=== PATIENT | male | born 1995 | race Caucasian/White ===

== ENCOUNTER 2018-08-23 17:12 | Emergency (ER) | payer BC ==
[2018-08-23] MEDS ORDERED: NS 1,000 ML IV ONE ×2 (17:47→19:41)
[2018-08-23] MEDS ORDERED: ONDANSETRON 4 MG/2 ML VIAL IVP PRN (17:47)
--- NOTE | 2018-08-23 17:53 | EDPHY ---
General Time Seen by Provider: 08/23/18 17:40 Narrative: CLINICAL IMPRESSION: Myalgias, nausea, vomiting, fever ASSESSMENT/PLAN: Patient is a 23-year-old male with no significant medical history presents to the emergency department with fever, myalgias, nausea and vomiting which started suddenly this morning. Patient daughter with exact symptoms this weekend. Patient is afebrile on arrival, mildly tachycardic. He is tired appearing however not toxic-appearing. His abdomen is soft, I am unable to elicit any tenderness to palpation. CBC with no evidence of leukocytosis. BMP with no significant metabolic abnormality or evidence of acute kidney injury. Hepatic panel and lipase grossly unremarkable without evidence of acute pancreatitis, acute hepatitis or acute hepatobiliary obstruction. Influenza negative. The patient was given IV fluids, antiemetic and Toradol with improvement of his symptoms. As there are other individuals with similar symptoms in the household I suspect this is viral in nature. He had no abdominal pain to suggest etiologies to include pancreatitis, cholecystitis, kidney stone, obstruction, perforation or other acute life-threatening intra- abdominal processes. The patient does not have a primary care provider, I provided a referral for him and he understands the importance of establishing care this week. On repeat examination prior to discharge the patient reports he is feeling much better, his heart rate normalized into the 80s on my examination. His abdomen remained soft and nontender, no peritoneal signs or evidence of a surgical abdomen. Conservative return precautions were discussed- he will return for uncontrolled fever, persistent nausea and vomiting, concerns of dehydration or for any other concerning symptom. DIFFERENTIAL DX: Adult fever including but not limited to viral syndromes including influenza, urinary tract infection, pneumonia and sepsis. ED COURSE: 1729: Case discussed with Dr. Steel 1934: On repeat examination the patient reports he is feeling much better, he is still mildly tachycardic at 100. Will p.o. Challenge. 2029: On repeat exam the patient is well-appearing, his heart rate on my examination was 87. His abdomen is soft and nontender to palpation. He was able to tolerate p.o.. CHIEF COMPLAINT: Myalgias, nausea, vomiting, fever HPI: Patient is a 23-year-old male with no significant medical history who presents to the Emergency Department with sudden-onset myalgias, fever, nausea and vomiting which started this morning. Patient reports his daughter was sick over the weekend with the very same symptoms, he had sudden onset this morning. Been unable to keep anything down, emesis x2. Patient reports feeling the chills and generally unwell 1st thing this morning, tried E when he started vomiting. Denies any recent travel or recent antibiotic use. He has been experiencing some congestion however denies any runny nose, cough or chest pain. He states that his stomach is upset, denies any focal abdominal pain. He denies any urinary symptoms to include dysuria, hematuria or frequency, he has had no testicular pain or swelling. He has had no bowel movement today however denies any issues with constipation or recent diarrhea. PMH: Denies Family History: Noncontributory Social History: Denies illicit drug use or smoking REVIEW OF SYSTEMS: All other systems negative Constitutional: Fever, chills, decreased appetite. Eyes: No discharge, vision change ENT: No sore throat, congestion, ear pain. Cardiovascular: No chest pain, no palpitations. Respiratory: No cough, no shortness of breath. Gastrointestinal: Nausea, vomiting, abdominal pain. No diarrhea Genitourinary: No hematuria, dysuria, flank pain, pelvic pain. Musculoskeletal: Myalgias No back pain, joint swelling, joint pain. Skin: No rashes, color change. Neurological: No dizziness, weakness. PHYSICAL EXAM: General Appearance: Well-developed, tired appearing however not toxic- appearing. HENT: Normocephalic, atraumatic. Bilateral external ears are normal. Bilateral tympanic membranes are normal with pearly leija reflex. Nares are clear, mucosa is pink. Oropharynx is clear, mucosa is mildly dry, uvula is midline. There is no tonsillar enlargement or exudate. The dentition is normal. Eyes: PERRLA, no acute vision change, nystagmus, swelling, discharge, pain or photosensitivity. Conjunctiva pink, no pallor or injection. Neck: Supple, nontender, no lymphadenopathy, no midline pain, FROM, no meningismus. Respiratory: There are no retractions, lungs are clear to auscultation. Cardiac: Tachycardic, no murmurs or gallops. Gastrointestinal: Abdomen is soft, nontender, bowel sounds normal, no masses/ hernia, no rigidity, guarding or focal peritoneal findings. Neurological: Alert and oriented x 3, CN 2-12 grossly intact, normal gait no ataxia, DTR's intact, normal sensation and strength Skin: Warm, dry, no rashes, no nodules on palpation. Musculoskeletal: Extremities are symmetrical, full range of motion, no tenderness, deformity, swelling, or erythema. Psychiatric: Patient is oriented X 3, there is no agitation. MEDICAL DECISION MAKING: Patient was seen independently. Secondary supervising physician at time of evaluation was Dr. Steel, she did not evaluate this patient. Diagnosis: Fever, nausea, vomiting, myalgias. New, requires workup Summary: See Assessment and Plan for summary of ED visit Clinical lab tests: ordered / reviewed. Independent visualization of images, tracing, or specimens: No. Decision to obtain medical records or history from someone other than the patient: No Review / Summarize previous medical records: Yes Discussed patient with another provider: Yes, Dr. Steel Patient Progress: Stable, discharged. - History Smoking Status: Never smoked - Objective Vital Signs: Initial Vital Signs Temperature (C) 37.7 C 08/23/18 17:18 Heart Rate 118 H 08/23/18 17:18 Respiratory Rate 18 08/23/18 17:18 Blood Pressure 133/96 H 08/23/18 17:18 O2 Sat (%) 93 08/23/18 17:18 O2 Delivery Mode Room Air Allergies/Adverse Reactions: No Known Allergies Allergy (Unverified 08/23/18 17:18) Home Medications: Medication Instructions Recorded Ondansetron Odt [Zofran Odt] 4 mg PO Q8 PRN #5 tab 08/23/18 Laboratory Results: Laboratory Results 08/23/18 17:50 08/23/18 17:50 08/23/18 08/23/18 08/23/18 17:50 17:50 17:50 WBC 8.10 10^3/uL 10^3/uL (3.80-9.50) RBC 6.04 10^6/uL 10^6/uL (4.40-6.38) Hgb 18.3 g/dL H g/dL (13.7-17.5) Hct 49.6 % % (40.0-51.0) MCV 82.1 fL fL (81.5-99.8) MCH 30.3 pg pg (27.9-34.1) MCHC 36.9 g/dL H g/dL (32.4-36.7) RDW 12.1 % % (11.5-15.2) Plt Count 184 10^3/uL 10^3/uL (150-400) MPV 9.9 fL fL (8.7-11.7) Neut % (Auto) 81.8 % H % (39.3-74.2) Lymph % (Auto) 7.7 % L % (15.0-45.0) Brewster % (Auto) 9.6 % % (4.5-13.0) Eos % (Auto) 0.1 % L % (0.6-7.6) Baso % (Auto) 0.4 % % (0.3-1.7) Nucleat RBC Rel Count 0.0 % % (0.0-0.2) Absolute Neuts (auto) 6.63 10^3/uL H 10^3/uL (1.70-6.50) Absolute Lymphs (auto) 0.62 10^3/uL L 10^3/uL (1.00-3.00) Absolute Monos (auto) 0.78 10^3/uL 10^3/uL (0.30-0.80) Absolute Eos (auto) 0.01 10^3/uL L 10^3/uL (0.03-0.40) Absolute Basos (auto) 0.03 10^3/uL 10^3/uL (0.02-0.10) Absolute Nucleated RBC 0.00 10^3/uL 10^3/uL (0-0.01) Immature Gran % 0.4 % % (0.0-1.1) Immature Gran # 0.03 10^3/uL 10^3/uL (0.00-0.10) Sodium 134 mEq/L L mEq/L (135-145) Potassium 3.7 mEq/L mEq/L (3.5-5.2) Chloride 102 mEq/L mEq/L (97-110) Carbon Dioxide 22 mEq/l mEq/l (22-31) Anion Gap 10 mEq/L mEq/L (6-14) BUN 10 mg/dL mg/dL (7-23) Creatinine 0.9 mg/dL mg/dL (0.7-1.3) Estimated GFR > 60 Glucose 113 mg/dL H mg/dL (70-100) Calcium 8.9 mg/dL mg/dL (8.5-10.4) Total Bilirubin 1.6 mg/dL H mg/dL (0.1-1.4) Conjugated Bilirubin 0.3 mg/dL mg/dL (0.0-0.5) Unconjugated Bilirubin 1.3 mg/dL H mg/dL (0.0-1.1) AST 35 IU/L IU/L (17-59) ALT 41 IU/L IU/L (21-72) Alkaline Phosphatase 86 IU/L IU/L (38-126) Total Protein 7.4 g/dL g/dL (6.3-8.2) Albumin 4.4 g/dL g/dL (3.5-5.0) Lipase 66 IU/L IU/L (23-300) Nasal Influenza A PCR NEGATIVE FOR FLU A (NEGATIVE) Nasal Influenza B PCR NEGATIVE FOR FLU B (NEGATIVE) Medications Given: Discontinued Medications Sodium Chloride (Ns) 1,000 mls @ 0 mls/hr IV ONCE ONE PRN Reason: Wide Open Stop: 08/23/18 17:48 Last Admin: 08/23/18 18:00 Dose: 1,000 mls Sodium Chloride (Ns) 1,000 mls @ 0 mls/hr IV ONCE ONE PRN Reason: Wide Open Stop: 08/23/18 19:42 Last Admin: 08/23/18 19:47 Dose: 1,000 mls Ketorolac Tromethamine (Toradol) 30 mg IVP EDNOW ONE Stop: 08/23/18 19:02 Last Admin: 08/23/18 19:11 Dose: 30 mg Ondansetron HCl (Zofran) 4 mg IVP Q4 PRN PRN Reason: Nausea/Vomiting, Can't Take PO Stop: 02/19/19 17:46 Last Admin: 08/23/18 18:01 Dose: 4 mg Departure - Departure Disposition: Home, Routine, Self-Care Clinical Impression: Nausea and vomiting Qualifiers: Vomiting type: unspecified Vomiting Intractability: non-intractable Qualified Code(s): R11.2 - Nausea with vomiting, unspecified Condition: Good Instructions: Ondansetron (By mouth), Acute Nausea and Vomiting (ED) Additional Instructions: DISCHARGE INSTRUCTIONS FROM YOUR DOCTOR Thank you for visiting our emergency department today. Please keep in mind that discharge from the emergency department does not mean that there is nothing wrong - it simply means that we have not identified an emergency condition that requires further evaluation or treatment in the hospital. You should always plan to follow up with primary care for re-evaluation of your condition in the next 2-3 days. Rest, push non-diuretic, non-caffeinated fluids, clear liquid diet, then a BRAT diet (bananas, rice, applesauce, toast), then slowly advance diet to normal. Attempt small frequent meals. Zofran as prescribed as needed for any recurrent nausea and/or vomiting. Schedule a follow-up appointment with your primary care physician in the next 1- 2 days for re-evaluation. Bring a copy of your test results with you to that appointment. Return for increased or unmanageable pain, new site or character of pain, flank pain, groin pain, pelvic pain, development of fever, chills, recurrent vomiting , vomiting blood or coffee grounds, diarrhea, constipation, bloody stools, black tarry stools, burning or pain with urination, bloody urine, inability to urinate, decreased urine output or other signs of dehydration, dizziness, weakness, fainting, difficulty breathing or swallowing, chest pain, or for any other new, worsening or worrisome symptoms. People present with illnesses and injuries in different ways, and it is always possible that we have missed something. You may always return for re-evaluation if symptoms worsen or if they are not improving or if you develop new/different symptoms. Again, thank you for choosing our emergency department. We hope that you feel better. Referrals: Rahat Munguia DO [Doctor of Osteopathy] - 2-3 days, call for appt. (Please establish care with a primary care provider, call to schedule an appointment for repeat examination this week.) Prescriptions: Ondansetron Odt [Zofran Odt] 4 mg PO Q8 PRN #5 tab PRN Reason: Nausea/Vomiting, Can'T Take Po
[2018-08-23 18:41] LABS: PLATELET COUNT 184 10^3/uL (150-400)
[2018-08-23] MEDS ORDERED: KETOROLAC 30 MG/1 ML SDV IVP ONE (19:01)
[2018-08-23 20:45] VITALS: BP 131/71
== END 2018-08-23 20:46 | disposition home or self-care (01) ==
DX: R11.2 Nausea with vomiting, unspecified (principal); R50.9 Fever, unspecified; E86.9 Volume depletion, unspecified
CPT/HCPCS: 96374; J1885; J2405